=== PATIENT | female | born 1945 | race Caucasian/White ===

== ENCOUNTER → 2017-05-30 10:00 | Outpatient (CLI) | payer MEDICARE ==
[2014-05-16 10:19] VITALS: BMI 34.5
[~2017-05-30 10:00] MED LIST: CELEBREX 100 M100 MG PO; CELEBREX200 MG PO; DIOVAN40 MG PO; HYDROCODONE-ACE15 ML PO; NASONEX NASAL S17 GM NS; SYNTHROID100 MCG PO; ZYRTEC10 MG PO
== END | disposition home or self-care (01) ==
LOC: D.MAMMO 04-29 13:30
DX: Z12.31 Encounter for screening mammogram for malignant neoplasm of breast (principal)